=== PATIENT | female | born 1940 | race Hispanic/Latino ===

== ENCOUNTER 2016-11-29 13:19 | Emergency (ER) | payer MEDICARE ==
--- NOTE | 2016-11-29 13:58 | Emergency Department Report ---
Entered by TAWANA ZAVALA, acting as scribe for CONNOR BHARDWAJ NP. Chief Complaint: Syncope Stated Complaint: SYNCOPE EPISODES Time Seen by Provider: 11/29/16 13:43 - HPI History of Present Illness: 76 year old female is non-toxic, non ill appearing, in no acute distress with c/ o dizziness s/p near syncopal episode that occurred yesterday. Patient states that she felt like she was going to fall but caught herself. Pt denies head trauma or syncope. Patient reports abd pain from hernia but denies N/V/D, chest pain, SOB, fever, chills, numbness, tingling, LOC, chest pain, and blurry vision. Patient reports wearing oxygen for chronic COPD. - ROS Review of Systems: Reports abd pain from hernia site, dizziness, near syncope Denies N/V/D, chest pain, SOB, fever, chills, numbness, tingling, LOC, chest pain, and blurry vision. - Exam Vital Signs: Vital Signs 11/29/16 13:25 Temperature 97.9 F Pulse Rate 79 Respiratory 20 Rate Blood Pressure 139/71 O2 Sat by Pulse 99 Oximetry Physical Exam: Constitutional: Non toxic appearing, NAD. Cardiovascular: Normal rate and rhythm with normal S1/S2 sounds. Respiratory: No respiratory distress. Lung sounds clear to auscultation bilaterally. Abdomen: Soft, nontender, and nondistended. Positive bowel sounds. No hepatosplenomegaly was noted. No guarding or rebound tenderness, negative epigastric bruit. Negative psoas sign, negative davis sign, negative McBurneys sign NEUROLOGIC: Cranial nerves II through XII are grossly intact. Alert and oriented x 3. Normal gait. Symmetrical strength and sensation. Reflexes 2+ throughout. Cerebellar testing normal. GCS score of 15. MSE screening note: Focused history and physical exam performed. Due to findings the following was ordered: EKG, BMP, CARDIAC CK/CKMB, CBC, HEPATIC STAT, BNP, TROPONIN, CHEST X-RAY was ordered for patient. ED Disposition for MSE Condition: Stable This documentation as recorded by the scribe,TAWANA ZAVALA,accurately reflects the service I personally performed and the decisions made by ak,CONNOR BHARDWAJ, LEODAN.
[2016-11-29 14:28] LABS: Basophils % (Auto) 0.8 % (0.0-1.8); Eosinophils % (Auto) 0.6 % (0.0-4.3); Hematocrit 42.8 % (30.3-42.9); Mean Corpuscular HGB Conc 33 % (30-34); Mean Corpuscular Hemoglobin 31 pg (28-32); Mean Corpuscular Volume 94 fl (79-97); Platelet Count 314 K/mm3 (140-440); Red Blood Count 4.55 M/mm3 (3.65-5.03); Red Cell Distribution Width 13.8 % (13.2-15.2); White Blood Count 8.2 K/mm3 (4.5-11.0)
[2016-11-29 14:38] LABS: Creatine Kinase MB 2.4 ng/mL (0.0-4.0)
[2016-11-29 14:39] LABS: Alanine Aminotransferase 5 units/L (7-56); Albumin 4.7 g/dL (3.9-5); Albumin/Globulin Ratio 1.5 %; Alkaline Phosphatase 57 units/L (35-129); Anion Gap 20 mmol/L; BUN/Creatinine Ratio 31.42; Blood Urea Nitrogen 22 mg/dL (7-17); Calcium 10.1 mg/dL (8.4-10.2); Carbon Dioxide 26 mmol/L (22-30); Chloride 98.7 mmol/L (98-107); Creatine Kinase 60 units/L (30-135); Glucose 98 mg/dL (65-100); Potassium 4.6 mmol/L (3.6-5.0); Sodium 140 mmol/L (137-145); Total Protein 7.8 g/dL (6.3-8.2)
--- NOTE | 2016-11-29 14:40 | Emergency Department Report ---
ED Syncope HPI - General Chief Complaint: Syncope Stated Complaint: SYNCOPE EPISODES Time Seen by Provider: 11/29/16 14:39 - History of Present Illness Initial Comments: Pt is a 76 yr old female with a h/o HTN, asthma who presents with near syncopal episodes. Pt reports for the last two days she feels as if she is going to pass out. She reports if she lays down she feels "as if I'm going to go out" so she stands up which alleviates the feeling. Pt denies any true syncopal episodes. Otherwise no MULLIGAN, dizziness, vision changes, NVD, SOB, CP, abdominal pain, leg pain/swelling, travel, trauma, falls, or sick contacts. Pt lives alone and does her own grocery shopping and bills PMD: Dr Banks - Related Data Allergies/Adverse Reactions: Allergies Sulfa (Sulfonamide Antibiotics) Allergy (Verified 03/04/13 22:58) Unknown Home Medications: Ambulatory Orders Verapamil HCl [Calan Sr] 240 mg PO QDAY 05/30/13 Levothyroxine [Synthroid] 75 mcg PO DAILY 11/09/13 Rosuvastatin (Nf) [Crestor] 5 mg PO DAILY 11/09/13 ALBUTEROL Inhaler [ProAir HFA Inhaler] 2 puff IH QID PRN 30 Days 01/02/15 Aspirin [Aspirin BABY CHEW TAB] 81 mg PO DAILY tab.chew 01/02/15 Hydrochlorothiazide [HCTZ] 25 mg PO QDAY #30 tablet 01/02/15 hydrALAZINE [Apresoline TAB] 25 mg PO Q8HR #90 tablet 01/02/15 predniSONE [Deltasone] 10 mg PO BID #10 tablet 01/02/15 Clindamycin [Clindamycin CAP] 300 mg PO Q8H #30 cap 12/15/15 Naproxen Sodium [Aleve TAB] 220 mg PO Q8H PRN #20 tablet 12/15/15 Nitrofurantoin [place]/M-Cryst [Macrobid CAP] 100 mg PO ONCE #14 capsule 11/29/16 ED Review of Systems ROS: Stated complaint: SYNCOPE EPISODES Other details as noted in HPI Comment: All other systems reviewed and negative ED Past Medical Hx - Past Medical History Previous Medical History?: Yes Hx Hypertension: Yes Hx Heart Attack/AMI: Yes (> 30 yrs ago; CHF about 10 yrs ago per patient) Hx Congestive Heart Failure: Yes Hx Arthritis: Yes Hx Seizures: No Hx Asthma: Yes (> 5 yrs ago) Hx COPD: Yes Hx HIV: No Additional medical history: Abd hernia, hypothyroidism, Chronic Pain (go to pain clinic), [place] x2,vaginal cyst - Surgical History Past Surgical History?: Yes Hx Cholecystectomy: Yes Additional Surgical History: Hysterectomy - Social History Smoking Status: Never Smoker Substance Use Type: Prescribed - Medications Home Medications: Home Medications Medication Instructions Recorded Confirmed Last Taken Type Verapamil HCl [Calan Sr] 240 mg PO QDAY 05/30/13 06/07/15 12/31/14 History Levothyroxine [Synthroid] 75 mcg PO DAILY 11/09/13 06/07/15 12/31/14 History Rosuvastatin (Nf) [Crestor] 5 mg PO DAILY 11/09/13 06/07/15 12/31/14 History ALBUTEROL Inhaler [ProAir HFA 2 puff IH QID PRN 30 Days 01/02/15 06/07/15 Unknown Rx Inhaler] Aspirin [Aspirin BABY CHEW TAB] 81 mg PO DAILY tab.chew 01/02/15 06/07/15 Unknown Rx Hydrochlorothiazide [HCTZ] 25 mg PO QDAY #30 tablet 01/02/15 06/07/15 Unknown Rx hydrALAZINE [Apresoline TAB] 25 mg PO Q8HR #90 tablet 01/02/15 06/07/15 Unknown Rx predniSONE [Deltasone] 10 mg PO BID #10 tablet 01/02/15 06/07/15 Unknown Rx Clindamycin [Clindamycin CAP] 300 mg PO Q8H #30 cap 12/15/15 Unknown Rx Naproxen Sodium [Aleve TAB] 220 mg PO Q8H PRN #20 tablet 12/15/15 Unknown Rx Nitrofurantoin [place]/M-Cryst 100 mg PO ONCE #14 capsule 11/29/16 Unknown Rx [Macrobid CAP] ED Physical Exam - General Limitations: No Limitations General appearance: alert, in no apparent distress - Head Head exam: Present: atraumatic, normocephalic - Eye Eye exam: Present: normal appearance, PERRL, EOMI. Absent: scleral icterus, conjunctival injection, nystagmus Pupils: Present: normal accommodation. Absent: unequal - ENT ENT exam: Present: normal exam, mucous membranes moist - Neck Neck exam: Present: normal inspection. Absent: tenderness, meningismus - Respiratory Respiratory exam: Present: normal lung sounds bilaterally. Absent: respiratory distress, wheezes, rales, rhonchi, stridor - Cardiovascular Cardiovascular Exam: Present: regular rate, normal rhythm, normal heart sounds. Absent: irregular rhythm, systolic murmur, diastolic murmur, rubs, gallop - GI/Abdominal GI/Abdominal exam: Present: soft, normal bowel sounds, hernia (large ventral hernia). Absent: distended, tenderness, guarding, rebound, rigid - Rectal Rectal exam: Present: deferred - Extremities Exam Extremities exam: Present: normal inspection - Back Exam Back exam: Present: normal inspection - Neurological Exam Neurological exam: Present: alert, oriented X3 - Psychiatric Psychiatric exam: Present: normal affect, normal mood - Skin Skin exam: Present: warm, dry, intact, normal color. Absent: rash ED Course Vital Signs 11/29/16 11/29/16 11/29/16 13:25 14:21 14:39 Temperature 97.9 F Pulse Rate 79 Respiratory 20 12 Rate Blood Pressure 139/71 O2 Sat by Pulse 99 97 98 Oximetry ED Medical Decision Making - Lab Data Result diagrams: 11/29/16 14:00 11/29/16 14:00 - EKG Data -: EKG Interpreted by Me - EKG Data 11/29/16 14:39 EKG 1348 sinus rhythm with sinus arrhythmia, 72 bpm, QTC 400 ms, normal axis, no LVH, no ST changes, no STEMI - Medical Decision Making UA reviewed for UTI, ordered macrobid 100mg PO x 1 dose here in the ED Results discussed with patient Pt to follow up with PMD Critical care attestation.: If time is entered above; I have spent that time in minutes in the direct care of this critically ill patient, excluding procedure time. ED Disposition Clinical Impression: Near syncope, UTI (urinary tract infection) Disposition: TO HOME OR SELFCARE Is pt being admited?: No Condition: Stable Instructions: Urinary Tract Infection in Women (ED), Near Syncope (ED) Prescriptions: Nitrofurantoin [place]/M-Cryst [Macrobid CAP] 100 mg PO ONCE #14 capsule
[2016-11-29 14:48] LABS: Bilirubin,Direct < 0.2 mg/dL (0-0.2)
--- NOTE | 2016-11-29 15:28 | Cat Scan Report ---
Cranial CT without contrast. History: Syncope. Findings: There is no evidence of acute hemorrhage or infarct. The posterior fossa is unremarkable. The ventricles are normal in size and contour. Senescent changes are consistent with age. There are no masses or extra-axial collections. The calvarium is intact. Impression: No acute findings.
[2016-11-29 16:08] LABS: Bacteria,Urine 2+ /HPF (Negative); Bilirubin,Urine NEG (Negative); Blood,Urine SM (Negative); Ketones,Urine 20 mg/dL (Negative); Leukocyte Esterase,Urine LG (Negative); Mucus,Urine 1+ /HPF; Nitrite,Urine POS (Negative); Urobilinogen,Urine < 2.0 mg/dL (<2.0)
--- NOTE | 2016-11-29 16:10 | XRay Report ---
CHEST TWO VIEWS: 11/29/16 14:02 CLINICAL: Syncope. COMPARISON: 12/31/14 FINDINGS: Normal heart and pulmonary vasculature.Calcified hilar granulomata are unchanged compared to the prior exam. The lungs are normally expanded and clear.The bones and soft tissues are unremarkable. IMPRESSION: No acute cardiopulmonary process. Old granulomatous disease.
[2016-11-29] MEDS ORDERED: MACROBID PO ONE (16:17)
[2016-11-29] MEDS ORDERED: MACROBID ONE (16:36)
[2016-11-29 16:45] VITALS: BP 142/67
== END 2016-11-29 16:44 | disposition home or self-care (01) ==
LOC: ED 13:19
DX: N39.0 Urinary tract infection, site not specified (principal); R55 Syncope and collapse; I11.0 Hypertensive heart disease with heart failure; I50.9 Heart failure, unspecified; M19.90 Unspecified osteoarthritis, unspecified site; J45.909 Unspecified asthma, uncomplicated; J44.9 Chronic obstructive pulmonary disease, unspecified; I25.2 Old myocardial infarction; Z88.2 Allergy status to sulfonamides; Z79.82 Long term (current) use of aspirin; Z90.710 Acquired absence of both cervix and uterus
CPT/HCPCS: 36415; 70450; 71020; 80048; 80074; 81001; 82550; 82553; 83880; 84484; 85025; 85379; 93005; 93010; 99284

== ENCOUNTER 2018-02-25 10:07 | Inpatient (IN) | payer MEDICARE ==
--- NOTE | 2018-02-25 10:27 | Emergency Department Report ---
ED Dizziness HPI - General Chief Complaint: Dizziness Stated Complaint: ALMOST PASSED OUT Time Seen by Provider: 02/25/18 10:25 Source: patient, family, EMS Mode of arrival: Stretcher Limitations: No Limitations - History of Present Illness Initial Comments: Patient was brought to the emergency room by EMS for dizziness. Patient said she almost passed out. She has been feeling dizzy on and off for the past one year. I spoke with her daughter Ms. Dianna Mariano who lives in [place]. She said, that her mother has been having dizzy spells for a year. She also said the patient had a negative cardiac cath about 6-8 months ago at [facility]. She said the patient's lives alone. MD Complaint: dizziness, lightheadedness, near syncope -: year(s) (one) Timing: sudden onset, now resolved Description: lightheadedness, near-syncope, other (Sense of moving through a tunnel.) History of Same: Yes History of Trauma: No Severity: Unable to Determine Improves With: nothing Worsens With: nothing Associated Symptoms: loss of appetite - Related Data Home Medications Medication Instructions Recorded Confirmed Last Taken Verapamil HCl [Calan Sr] 240 mg PO QDAY 05/30/13 06/07/15 12/31/14 Levothyroxine [Synthroid] 75 mcg PO DAILY 11/09/13 06/07/15 12/31/14 Rosuvastatin (Nf) [Crestor] 5 mg PO DAILY 11/09/13 06/07/15 12/31/14 Previous Rx's Medication Instructions Recorded Last Taken Type ALBUTEROL Inhaler (OR & NICU) 2 puff IH QID PRN 30 Days 01/02/15 Unknown Rx [ProAir HFA Inhaler] inhalation Aspirin [Aspirin BABY CHEW TAB] 81 mg PO DAILY tab.chew 01/02/15 Unknown Rx hydrALAZINE [Apresoline TAB] 25 mg PO Q8HR #90 tablet 01/02/15 Unknown Rx hydroCHLOROthiazide [HCTZ] 25 mg PO QDAY #30 tablet 01/02/15 Unknown Rx predniSONE [Deltasone] 10 mg PO BID #10 tablet 01/02/15 Unknown Rx Clindamycin [Clindamycin CAP] 300 mg PO Q8H #30 cap 12/15/15 Unknown Rx Naproxen Sodium [Aleve TAB] 220 mg PO Q8H PRN #20 tablet 12/15/15 Unknown Rx Nitrofurantoin [place]/M-Cryst 100 mg PO ONCE #14 capsule 11/29/16 Unknown Rx [Macrobid CAP] Allergies Allergy/AdvReac Type Severity Reaction Status Date / Time Sulfa (Sulfonamide Allergy Unknown Verified 03/04/13 22:58 Antibiotics) ED Review of Systems ROS: Stated complaint: ALMOST PASSED OUT Other details as noted in HPI Comment: All other systems reviewed and negative Constitutional: denies: chills, fever Eyes: denies: eye pain ENT: denies: ear pain Respiratory: denies: cough, shortness of breath Cardiovascular: denies: chest pain, palpitations Endocrine: no symptoms reported Gastrointestinal: abdominal pain. denies: nausea, vomiting, diarrhea, constipation Genitourinary: denies: urgency, dysuria, frequency Musculoskeletal: denies: back pain Skin: denies: rash, lesions Neurological: denies: headache, weakness, numbness, paresthesias Psychiatric: denies: anxiety, depression Hematological/Lymphatic: denies: easy bleeding, easy bruising ED Past Medical Hx - Past Medical History Hx Hypertension: Yes Hx Heart Attack/AMI: Yes (> 30 yrs ago; CHF about 10 yrs ago per patient) Hx Congestive Heart Failure: Yes Hx Arthritis: Yes Hx Seizures: No Hx Asthma: Yes (> 5 yrs ago) Hx COPD: Yes Hx HIV: No Additional medical history: Abd hernia, hypothyroidism, Chronic Pain (go to pain clinic), [place] x2,vaginal cyst - Surgical History Hx Cholecystectomy: Yes Additional Surgical History: Hysterectomy - Social History Smoking Status: Never Smoker Substance Use Type: Prescribed - Medications Home Medications: Home Medications Medication Instructions Recorded Confirmed Last Taken Type Verapamil HCl [Calan Sr] 240 mg PO QDAY 05/30/13 06/07/15 12/31/14 History Levothyroxine [Synthroid] 75 mcg PO DAILY 11/09/13 06/07/15 12/31/14 History Rosuvastatin (Nf) [Crestor] 5 mg PO DAILY 11/09/13 06/07/15 12/31/14 History ALBUTEROL Inhaler (OR & NICU) 2 puff IH QID PRN 30 Days 01/02/15 06/07/15 Unknown Rx [ProAir HFA Inhaler] inhalation Aspirin [Aspirin BABY CHEW TAB] 81 mg PO DAILY tab.chew 01/02/15 06/07/15 Unknown Rx hydrALAZINE [Apresoline TAB] 25 mg PO Q8HR #90 tablet 01/02/15 06/07/15 Unknown Rx hydroCHLOROthiazide [HCTZ] 25 mg PO QDAY #30 tablet 01/02/15 06/07/15 Unknown Rx predniSONE [Deltasone] 10 mg PO BID #10 tablet 01/02/15 06/07/15 Unknown Rx Clindamycin [Clindamycin CAP] 300 mg PO Q8H #30 cap 12/15/15 Unknown Rx Naproxen Sodium [Aleve TAB] 220 mg PO Q8H PRN #20 tablet 12/15/15 Unknown Rx Nitrofurantoin [place]/M-Cryst 100 mg PO ONCE #14 capsule 11/29/16 Unknown Rx [Macrobid CAP] ED Physical Exam - General Limitations: No Limitations General appearance: alert, in no apparent distress - Head Head exam: Present: atraumatic, normocephalic, normal inspection - Eye Eye exam: Present: normal appearance, PERRL, EOMI Pupils: Present: normal accommodation - ENT ENT exam: Present: normal exam, normal orophraynx, mucous membranes moist - Neck Neck exam: Present: normal inspection, full ROM. Absent: tenderness - Respiratory Respiratory exam: Present: normal lung sounds bilaterally. Absent: respiratory distress, wheezes, rales, rhonchi, stridor - Cardiovascular Cardiovascular Exam: Present: regular rate, normal rhythm, normal heart sounds - GI/Abdominal GI/Abdominal exam: Present: soft, tenderness, normal bowel sounds. Absent: distended, guarding, rebound, rigid - Extremities Exam Extremities exam: Present: normal inspection, full ROM, normal capillary refill. Absent: tenderness - Back Exam Back exam: Present: normal inspection, full ROM. Absent: tenderness - Neurological Exam Neurological exam: Present: alert, oriented X3, CN II-XII intact - Psychiatric Psychiatric exam: Present: normal affect, normal mood - Skin Skin exam: Present: warm, dry, intact, normal color. Absent: rash ED Course Vital Signs 02/25/18 10:28 Temperature 98.1 F Pulse Rate 80 Blood Pressure 115/67 - Reevaluation(s) Reevaluation #1: 02/25/18 14:03 I discussed the patient care with the hospitalist dedicated regional driver Dr Guevara. He will admit patient for observation. ED Medical Decision Making - Lab Data Result diagrams: 02/25/18 12:24 02/25/18 12:24 - EKG Data -: EKG Interpreted by Me EKG shows normal: sinus rhythm Rate: normal (61) - EKG Data When compared to previous EKG there are: previous EKG unavailable Interpretation: nonspecific ST-T wave stephie 02/25/18 14:56 No STEMI. - Radiology Data Radiology results: report reviewed, image reviewed - Medical Decision Making Dizziness. Critical care attestation.: If time is entered above; I have spent that time in minutes in the direct care of this critically ill patient, excluding procedure time. ED Disposition Clinical Impression: Dizziness, Near syncope, Orthostatic dizziness, Dehydration Disposition: OP ADMIT IP TO THIS HOSP Is pt being admited?: Yes Does the pt Need Aspirin: No Condition: Stable Time of Disposition: 14:00
--- NOTE | 2018-02-25 11:24 | Cat Scan Report ---
FINAL REPORT EXAM: CT HEAD/BRAIN WO CON HISTORY: Lightheadedness/Dizziness TECHNIQUE: CT of the Head without IV contrast. PRIORS: None currently available. FINDINGS: Decreased attenuation regions in the periventricular and subcortical white matter are nonspecific and may represent small vessel ischemic disease, encephalopathy, edema, or a demyelinating process. Small vessel ischemic disease (leukoaroaiosis) favored. Vascular calcifications. There is no evidence for acute ischemia. There is no hemorrhage. There is no midline shift. There is no hydrocephalus. There is no mass. Age appropriate hart-white matter attenuation is noted. There is no calvarial fracture. The temporal bones demonstrate aerated mastoid air cells. The middle ears appear unremarkable. Paranasal sinuses are unremarkable. Globes are intact. IMPRESSION: No acute intracranial findings. Chronic ischemic disease.
[2018-02-25 12:44] LABS: Basophils % (Auto) 0.5 % (0.0-1.8); Eosinophils % (Auto) 0.3 % (0.0-4.3); Hematocrit 42.3 % (30.3-42.9); Hemoglobin 13.6 gm/dl (10.1-14.3); Lymphocytes # (Auto) 1.2 K/mm3 (1.2-5.4); Lymphocytes % (Auto) 12.5 % (13.4-35.0); Mean Corpuscular HGB Conc 32 % (30-34); Mean Corpuscular Hemoglobin 32 pg (28-32); Mean Corpuscular Volume 98 fl (79-97); Monocytes # (Auto) 0.5 K/mm3 (0.0-0.8); Monocytes % (Auto) 5.2 % (0.0-7.3); Red Blood Count 4.31 M/mm3 (3.65-5.03); Red Cell Distribution Width 14.4 % (13.2-15.2)
[2018-02-25 12:50] LABS: Bacteria,Urine 1+ /HPF (Negative); Bilirubin,Urine NEG (Negative); Blood,Urine SM (Negative); Color,Urine Yellow (Yellow); Mucus,Urine FEW /HPF; Urobilinogen,Urine < 2.0 mg/dL (<2.0)
[2018-02-25 12:51] LABS: Platelet Count 216 K/mm3 (140-440)
[2018-02-25 12:54] LABS: INR 0.88 (0.87-1.13)
[2018-02-25 13:04] LABS: Albumin 4.4 g/dL (3.9-5); BUN/Creatinine Ratio 30; Blood Urea Nitrogen 15 mg/dL (7-17); Calcium 9.8 mg/dL (8.4-10.2); Hemolysis Index 4
[2018-02-25 13:24] LABS: Alanine Aminotransferase < 5 units/L (7-56)
[2018-02-25] MEDS ORDERED: NACL 0.9% 1000 ML 1,000 ML IV ONE (13:39)
--- NOTE | 2018-02-25 13:58 | XRay Report ---
FINAL REPORT EXAM: XR CHEST 1V AP HISTORY: Lightheadedness/Dizziness TECHNIQUE: Frontal chest x-ray. PRIORS: None currently available. FINDINGS: Cardiac silhouette is within normal limits. Aortic calcifications. There is no effusion. There is no pneumothorax. There is no consolidation. There are no suspicious osseous lesions. Degenerative changes in the spine and shoulders. IMPRESSION: No acute cardiopulmonary findings.
--- NOTE | 2018-02-25 15:23 | History and Physical Report ---
History of Present Illness Date of examination: 02/25/18 Date of admission: 02/25/18 14:03 Medications and Allergies Allergies Allergy/AdvReac Type Severity Reaction Status Date / Time Sulfa (Sulfonamide Allergy Unknown Verified 03/04/13 22:58 Antibiotics) Home Medications Medication Instructions Recorded Confirmed Last Taken Type Verapamil HCl [Calan Sr] 240 mg PO QDAY 05/30/13 06/07/15 12/31/14 History Levothyroxine [Synthroid] 75 mcg PO DAILY 11/09/13 06/07/15 12/31/14 History Rosuvastatin (Nf) [Crestor] 5 mg PO DAILY 11/09/13 06/07/15 12/31/14 History ALBUTEROL Inhaler (OR & NICU) 2 puff IH QID PRN 30 Days 01/02/15 06/07/15 Unknown Rx [ProAir HFA Inhaler] inhalation Aspirin [Aspirin BABY CHEW TAB] 81 mg PO DAILY tab.chew 01/02/15 06/07/15 Unknown Rx hydrALAZINE [Apresoline TAB] 25 mg PO Q8HR #90 tablet 01/02/15 06/07/15 Unknown Rx hydroCHLOROthiazide [HCTZ] 25 mg PO QDAY #30 tablet 01/02/15 06/07/15 Unknown Rx predniSONE [Deltasone] 10 mg PO BID #10 tablet 01/02/15 06/07/15 Unknown Rx Clindamycin [Clindamycin CAP] 300 mg PO Q8H #30 cap 12/15/15 Unknown Rx Naproxen Sodium [Aleve TAB] 220 mg PO Q8H PRN #20 tablet 12/15/15 Unknown Rx Nitrofurantoin [place]/M-Cryst 100 mg PO ONCE #14 capsule 11/29/16 Unknown Rx [Macrobid CAP] Exam - Constitutional Vitals: Temp Pulse Resp BP Pulse Ox 98.1 F 80 115/67 02/25/18 10:28 02/25/18 10:28 02/25/18 10:28 Results - Labs CBC & Chem 7: 02/25/18 12:24 02/25/18 12:24 Labs: Laboratory Last Values WBC 9.3 K/mm3 (4.5-11.0) 02/25/18 12:24 RBC 4.31 M/mm3 (3.65-5.03) 02/25/18 12:24 Hgb 13.6 gm/dl (10.1-14.3) 02/25/18 12:24 Hct 42.3 % (30.3-42.9) 02/25/18 12:24 MCV 98 fl (79-97) H 02/25/18 12:24 MCH 32 pg (28-32) 02/25/18 12:24 MCHC 32 % (30-34) 02/25/18 12:24 RDW 14.4 % (13.2-15.2) 02/25/18 12:24 Plt Count 216 K/mm3 (140-440) 02/25/18 12:24 Lymph % (Auto) 12.5 % (13.4-35.0) L 02/25/18 12: [place] % (Auto) 5.2 % (0.0-7.3) 02/25/18 12:24 Eos % (Auto) 0.3 % (0.0-4.3) 02/25/18 12:24 Baso % (Auto) 0.5 % (0.0-1.8) 02/25/18 12:24 Lymph # 1.2 K/mm3 (1.2-5.4) 02/25/18 12:24 [place] # 0.5 K/mm3 (0.0-0.8) 02/25/18 12: Eos # 0.0 K/mm3 (0.0-0.4) 02/25/18 12:24 Baso # 0.0 K/mm3 (0.0-0.1) 02/25/18 12:24 Seg Neutrophils % 81.5 % (40.0-70.0) H 02/25/18 12:24 Seg Neutrophils # 7.6 K/mm3 (1.8-7.7) 02/25/18 12:24 PT 12.4 Sec. (12.2-14.9) 02/25/18 12:24 INR 0.88 (0.87-1.13) 02/25/18 12:24 Sodium 137 mmol/L (137-145) 02/25/18 12:24 Potassium 4.7 mmol/L (3.6-5.0) 02/25/18 12:24 Chloride 101.0 mmol/L (98-107) 02/25/18 12:24 Carbon Dioxide 27 mmol/L (22-30) 02/25/18 12:24 Anion Gap 14 mmol/L 02/25/18 12:24 BUN 15 mg/dL (7-17) 02/25/18 12:24 Creatinine 0.5 mg/dL (0.7-1.2) L 02/25/18 12:24 Estimated GFR > 60 ml/min 02/25/18 12:24 BUN/Creatinine Ratio 30 % 02/25/18 12:24 Glucose 96 mg/dL (65-100) 02/25/18 12:24 Lactic Acid 0.70 mmol/L (0.7-2.0) 02/25/18 12:24 Calcium 9.8 mg/dL (8.4-10.2) 02/25/18 12:24 Total Bilirubin 0.50 mg/dL (0.1-1.2) 02/25/18 12:24 AST 17 units/L (5-40) 02/25/18 12:24 ALT < 5 units/L (7-56) L 02/25/18 12:24 Alkaline Phosphatase 43 units/L (35-129) 02/25/18 12:24 Total Creatine Kinase 33 units/L (30-135) 02/25/18 12:24 CK-MB (CK-2) 1.0 ng/mL (0.0-4.0) 02/25/18 12:24 CK-MB (CK-2) Rel Index 3.0 (0-4) 02/25/18 12:24 Troponin T < 0.010 ng/mL (0.00-0.029) 02/25/18 12:24 NT-Pro-B Natriuret Pep 236.6 pg/mL (0-900) 02/25/18 12:24 Total Protein 7.1 g/dL (6.3-8.2) 02/25/18 12:24 Albumin 4.4 g/dL (3.9-5) 02/25/18 12:24 Albumin/Globulin Ratio 1.6 % 02/25/18 12:24 Lipase 41 units/L (13-60) 02/25/18 12:24 Urine Color Yellow (Yellow) 02/25/18 12:13 Urine Turbidity Cloudy (Clear) 02/25/18 12:13 Urine pH 7.0 (5.0-7.0) 02/25/18 12:13 Ur Specific Leupp 1.017 (1.003-1.030) 02/25/18 12:13 Urine Protein 30 mg/dl mg/dL (Negative) 02/25/18 12:13 Urine Glucose (UA) Neg mg/dL (Negative) 02/25/18 12:13 Urine Ketones Neg mg/dL (Negative) 02/25/18 12:13 Urine Blood Sm (Negative) 02/25/18 12:13 Urine Nitrite Neg (Negative) 02/25/18 12:13 Urine Bilirubin Neg (Negative) 02/25/18 12:13 Urine Urobilinogen < 2.0 mg/dL (<2.0) 02/25/18 12:13 Ur Leukocyte Esterase Neg (Negative) 02/25/18 12:13 Urine WBC (Auto) 5.0 /HPF (0.0-6.0) 02/25/18 12:13 Urine RBC (Auto) 7.0 /HPF (0.0-6.0) 02/25/18 12:13 U Epithel Cells (Auto) 13.0 /HPF (0-13.0) 02/25/18 12:13 Urine Bacteria (Auto) 1+ /HPF (Negative) 02/25/18 12:13 Urine Mucus Few /HPF 02/25/18 12:13 Urine Yeast (Budding) 3+ /HPF 02/25/18 12:13
[2018-02-26] MEDS ORDERED: SODIUM CHLORIDE FLUSH SYRINGE 10 ML IV PRN (01:59)
[2018-02-26] MEDS ORDERED: MORPHINE IV PRN (01:59)
[2018-02-26] MEDS ORDERED: ZOFRAN IV PRN (01:59)
[2018-02-26] MEDS ORDERED: TYLENOL PO PRN (01:59)
[2018-02-26] MEDS ORDERED: REGLAN IV PRN (01:59)
[2018-02-26] MEDS ORDERED: PROAIR IH PRN (02:02)
[2018-02-26] MEDS ORDERED: PROVENTIL IH PRN (02:20)
[2018-02-26] MEDS: SYNTHROID PO SCH (05:47)
[2018-02-26] MEDS: PERCOCET 5/325 PO PRN ×2 (05:51→20:27)
--- NOTE | 2018-02-26 07:06 | Event Note ---
Date: 02/25/18 See dictated H/p in reports Near syncope Orthostatic Hypotension
--- NOTE | 2018-02-26 08:07 | History and Physical Report ---
CHIEF COMPLAINT: 1. Near-passing out spells for the last 1 week. 2. Dizziness for 1 year. HISTORY OF PRESENT ILLNESS: The patient is an 78-year-old female who is brought in for dizziness off and on for the last 1 year and near-passing out spells for the last one week. The patient had a negative cardiac catheterization 6-8 months ago at [facility]. The patient is on multiple antihypertensives. No precipitating factors. Antihypertensives may be precipitating. No shortness of breath. PAST MEDICAL HISTORY: Significant for hypertension, asthma, and osteoarthritis. PAST SURGICAL HISTORY: Hysterectomy and cholecystectomy. SOCIAL HISTORY: Does not smoke. Lives with . FAMILY HISTORY: Significant for hypertension. CURRENT MEDICATIONS: On the chart. REVIEW OF SYSTEMS: Significant for near-syncopal episodes for the past one week, but did not syncopize. Feels very dizzy, especially on standing. PHYSICAL EXAMINATION: GENERAL: Elderly female, cooperative during examination. VITAL SIGNS: Blood pressure supine was 126/66, sitting was 118/68, standing was 134/76, heart rate was 102, temperature 97, pulse is 70, respirations are 18. HEENT: Unremarkable. Pupils equal and reactive. NECK: Supple, no lymphadenopathy, no thyromegaly. LUNGS: Clear to auscultation and percussion. Good air entry. CARDIOVASCULAR: S1, S2 heard. No gallop, no murmur, no rub. Apical impulse in the left fifth intercostal space and midclavicular line. ABDOMEN: Soft and benign. No hepatosplenomegaly, no guarding, no rigidity. Hernial orifices are normal. EXTREMITIES: Good pedal pulses. No pedal edema. CENTRAL NERVOUS SYSTEM: Alert and oriented x 4, nonfocal exam. SKIN: Normal. DIAGNOSTIC DATA: EKG shows normal sinus rhythm, heart rate of 61 per minute, no acute ST-T wave changes. IMAGING STUDIES: Head CT shows no acute intracranial findings. Chronic ischemic disease. Chest x-ray: No acute cardiopulmonary findings. LABORATORY DATA: Labs are significant for white count of 9300, hemoglobin of 13.6 and 42.3, platelet count was 216,000. Electrolytes are normal. BUN and creatinine is 15 and 0.5. LFTs are normal. Urine was normal. ASSESSMENT AND PLAN: 1. Near syncope. The patient has orthostatic hypotension. I will stop some of the blood pressure medications. I will hold hydralazine and hydrochlorothiazide for the time being. The patient to continue on verapamil and reassess. 2. Hypothyroidism. Continue levothyroxine. 3. Hyperlipidemia. Continue rosuvastatin. 4. Osteoarthritis, naproxen on hold. We will add if necessary. 5. Asthma. Continue albuterol inhalers on a p.r.n. basis. 6. Deep venous thrombosis prophylaxis, Lovenox 40 mg subcutaneous daily. ADDENDUM: The patient to get echocardiogram, and carotid duplex scan. Lexiscan not ordered because Cardiology consult requested. JOB# [id number] PJ/JASON
--- NOTE | 2018-02-26 08:30 | Progress Note ---
Assessment and Plan Assessment and plan: Presyncope. Follow-up carotid ultrasound. We will order echocardiogram today. Hypertension. Resume antihypertensive medications. COPD. Compensated. Continue home medications. Hypothyroidism. Continue Synthroid. Hyperlipidemia. Continue Lipitor DVT prophylaxis. Lovenox daily. History Interval history: No new episodes overnight Hospitalist Physical - Constitutional Vitals: Temp Pulse Resp BP Pulse Ox 98.2 F 65 18 133/68 95 02/26/18 02:37 02/26/18 02:37 02/26/18 02:37 02/26/18 02:37 02/26/18 02:37 General appearance: Present: no acute distress, well-nourished - EENT Eyes: Present: PERRL, EOM intact ENT: hearing intact, clear oral mucosa, dentition normal - Neck Neck: Present: supple, normal ROM - Respiratory Respiratory effort: normal Respiratory: bilateral: CTA - Cardiovascular Rhythm: regular Heart Sounds: Present: S1 & S2. Absent: gallop, rub - Extremities Extremities: no ischemia, No edema, Full ROM - Abdominal General gastrointestinal: soft, non-tender, non-distended, normal bowel sounds - Integumentary Integumentary: Present: clear, warm, dry - Neurologic Neurologic: CNII-XII intact, moves all extremities Results - Labs CBC & Chem 7: 02/25/18 12:24 02/25/18 12:24 Labs: Laboratory Last Values WBC 9.3 K/mm3 (4.5-11.0) 02/25/18 12:24 RBC 4.31 M/mm3 (3.65-5.03) 02/25/18 12:24 Hgb 13.6 gm/dl (10.1-14.3) 02/25/18 12:24 Hct 42.3 % (30.3-42.9) 02/25/18 12:24 MCV 98 fl (79-97) H 02/25/18 12:24 MCH 32 pg (28-32) 02/25/18 12:24 MCHC 32 % (30-34) 02/25/18 12:24 RDW 14.4 % (13.2-15.2) 02/25/18 12:24 Plt Count 216 K/mm3 (140-440) 02/25/18 12:24 Lymph % (Auto) 12.5 % (13.4-35.0) L 02/25/18 12:24 [place] % (Auto) 5.2 % (0.0-7.3) 02/25/18 12:24 Eos % (Auto) 0.3 % (0.0-4.3) 02/25/18 12:24 Baso % (Auto) 0.5 % (0.0-1.8) 02/25/18 12:24 Lymph # 1.2 K/mm3 (1.2-5.4) 02/25/18 12:24 [place] # 0.5 K/mm3 (0.0-0.8) 02/25/18 12:24 Eos # 0.0 K/mm3 (0.0-0.4) 02/25/18 12: Baso # 0.0 K/mm3 (0.0-0.1) 02/25/18 12:24 Seg Neutrophils % 81.5 % (40.0-70.0) H 02/25/18 12:24 Seg Neutrophils # 7.6 K/mm3 (1.8-7.7) 02/25/18 12:24 PT 12.4 Sec. (12.2-14.9) 02/25/18 12:24 INR 0.88 (0.87-1.13) 02/25/18 12:24 Sodium 137 mmol/L (137-145) 02/25/18 12:24 Potassium 4.7 mmol/L (3.6-5.0) 02/25/18 12:24 Chloride 101.0 mmol/L (98-107) 02/25/18 12:24 Carbon Dioxide 27 mmol/L (22-30) 02/25/18 12:24 Anion Gap 14 mmol/L 02/25/18 12:24 BUN 15 mg/dL (7-17) 02/25/18 12:24 Creatinine 0.5 mg/dL (0.7-1.2) L 02/25/18 12:24 Estimated GFR > 60 ml/min 02/25/18 12:24 BUN/Creatinine Ratio 30 % 02/25/18 12:24 Glucose 96 mg/dL (65-100) 02/25/18 12:24 POC Glucose 95 (70-105) 02/25/18 21:45 Hemoglobin A1c 5.5 % (4-6) 02/26/18 02:48 Lactic Acid 0.70 mmol/L (0.7-2.0) 02/25/18 12:24 Calcium 9.8 mg/dL (8.4-10.2) 02/25/18 12:24 Total Bilirubin 0.50 mg/dL (0.1-1.2) 02/25/18 12:24 AST 17 units/L (5-40) 02/25/18 12:24 ALT < 5 units/L (7-56) L 02/25/18 12:24 Alkaline Phosphatase 43 units/L (35-129) 02/25/18 12:24 Total Creatine Kinase 33 units/L (30-135) 02/25/18 12:24 CK-MB (CK-2) 1.0 ng/mL (0.0-4.0) 02/25/18 12:24 CK-MB (CK-2) Rel Index 3.0 (0-4) 02/25/18 12:24 Troponin T < 0.010 ng/mL (0.00-0.029) 02/25/18 12:24 NT-Pro-B Natriuret Pep 236.6 pg/mL (0-900) 02/25/18 12:24 Total Protein 7.1 g/dL (6.3-8.2) 02/25/18 12:24 Albumin 4.4 g/dL (3.9-5) 02/25/18 12:24 Albumin/Globulin Ratio 1.6 % 02/25/18 12:24 Lipase 41 units/L (13-60) 02/25/18 12:24 Urine Color Yellow (Yellow) 02/25/18 12:13 Urine Turbidity Cloudy (Clear) 02/25/18 12:13 Urine pH 7.0 (5.0-7.0) 02/25/18 12:13 Ur Specific [place] 1.017 (1.003-1.030) 02/25/18 12:13 Urine Protein 30 mg/dl mg/dL (Negative) 02/25/18 12:13 Urine Glucose (UA) Neg mg/dL (Negative) 02/25/18 12:13 Urine Ketones Neg mg/dL (Negative) 02/25/18 12:13 Urine Blood Sm (Negative) 02/25/18 12:13 Urine Nitrite Neg (Negative) 02/25/18 12:13 Urine Bilirubin Neg (Negative) 02/25/18 12:13 Urine Urobilinogen < 2.0 mg/dL (<2.0) 02/25/18 12:13 Ur Leukocyte Esterase Neg (Negative) 02/25/18 12:13 Urine WBC (Auto) 5.0 /HPF (0.0-6.0) 02/25/18 12:13 Urine RBC (Auto) 7.0 /HPF (0.0-6.0) 02/25/18 12:13 U Epithel Cells (Auto) 13.0 /HPF (0-13.0) 02/25/18 12:13 Urine Bacteria (Auto) 1+ /HPF (Negative) 02/25/18 12:13 Urine Mucus Few /HPF 02/25/18 12:13 Urine Yeast (Budding) 3+ /HPF 02/25/18 12:13
[2018-02-26] MEDS: PEPCID PO SCH ×3 (09:39→22:25)
[2018-02-26] MEDS: BABY ASPIRIN PO SCH (09:39)
[2018-02-26] MEDS: DELTASONE PO SCH ×3 (09:39→22:23)
[2018-02-26] MEDS: CALAN SR PO SCH (09:40)
[2018-02-26] MEDS: SODIUM CHLORIDE FLUSH SYRINGE 10 ML IV SCH ×2 (09:44→22:29)
--- NOTE | 2018-02-26 10:43 | Consultation ---
History of Present Illness Consult date: 02/26/18 Consult reason: other (Near syncope) History of present illness: This is an 78 year old woman with a history of hypertension. There is no history of coronary artery disease. An echocardiogram in 2014 documents a normal left ventricular systolic function with a normal ejection fraction. Patient presented to this hospital with near syncope. Cardiac consultation was requested. Patient reports feeling dizzy on yesterday. There were no reports of chest pain, shortness of breath or palpitations. There was no loss of consciousness. She had a blood pressure of 115/[address] scan reports no intracranial abnormalities. Her ECG shows a normal sinus rhythm. Medications and Allergies Allergies Allergy/AdvReac Type Severity Reaction Status Date / Time Sulfa (Sulfonamide Allergy Unknown Verified 03/04/13 22:58 Antibiotics) Home Medications Medication Instructions Recorded Confirmed Last Taken Type Verapamil HCl [Calan Sr] 240 mg PO QDAY 05/30/13 02/25/18 12/31/14 History Levothyroxine [Synthroid] 75 mcg PO DAILY 11/09/13 02/25/18 12/31/14 History Rosuvastatin (Nf) [Crestor] 5 mg PO DAILY 11/09/13 02/25/18 12/31/14 History ALBUTEROL Inhaler (OR & NICU) 2 puff IH QID PRN 30 Days 01/02/15 02/25/18 Unknown Rx [ProAir HFA Inhaler] inhalation Aspirin [Aspirin BABY CHEW TAB] 81 mg PO DAILY tab.chew 01/02/15 02/25/18 Unknown Rx hydrALAZINE [Apresoline TAB] 25 mg PO Q8HR #90 tablet 01/02/15 02/25/18 Unknown Rx hydroCHLOROthiazide [HCTZ] 25 mg PO QDAY #30 tablet 01/02/15 02/25/18 Unknown Rx predniSONE [Deltasone] 10 mg PO BID #10 tablet 01/02/15 02/25/18 Unknown Rx Clindamycin [Clindamycin CAP] 300 mg PO Q8H #30 cap 12/15/15 02/25/18 Unknown Rx Naproxen Sodium [Aleve TAB] 220 mg PO Q8H PRN #20 tablet 12/15/15 02/25/18 Unknown Rx Nitrofurantoin [place]/M-Cryst 100 mg PO ONCE #14 capsule 11/29/16 02/25/18 Unknown Rx [Macrobid CAP] Active Meds: Active Medications Acetaminophen (Tylenol) 650 mg PO Q4H PRN PRN Reason: Pain MILD(1-3)/Fever >100.5/MULLIGAN Albuterol (Proventil) 2.5 mg IH QIDRT PRN PRN Reason: Shortness Of Breath Aspirin (Baby Aspirin) 81 mg PO DAILY [facility] Last Admin: 02/26/18 09:39 Dose: 81 mg Atorvastatin Calcium (Lipitor) 10 mg PO QHS [facility] Famotidine (Pepcid) 20 mg PO BID [facility] Last Admin: 02/26/18 09:39 Dose: 20 mg Levothyroxine Sodium (Synthroid) 75 mcg PO DAILY@0600 [facility] Last Admin: 02/26/18 05:47 Dose: 75 mcg Metoclopramide HCl (Reglan) 10 mg IV Q6H PRN PRN Reason: Nausea And Vomiting Morphine Sulfate (Morphine) 2 mg IV Q4H PRN PRN Reason: Pain, Moderate (4-6) Ondansetron HCl (Zofran) 4 mg IV Q8H PRN PRN Reason: Nausea And Vomiting Oxycodone/Acetaminophen (Percocet 5/325) 1 tab PO Q6H PRN PRN Reason: Pain, Moderate (4-6) Last Admin: 02/26/18 05:51 Dose: 1 tab Prednisone (Deltasone) 10 mg PO BID [facility] Last Admin: 02/26/18 09:39 Dose: 10 mg Sodium Chloride (Sodium Chloride Flush Syringe 10 Ml) 10 ml IV BID [facility] Last Admin: 02/26/18 09:44 Dose: 10 ml Sodium Chloride (Sodium Chloride Flush Syringe 10 Ml) 10 ml IV PRN PRN PRN Reason: LINE FLUSH Verapamil HCl (Calan Sr) 240 mg PO QDAY [facility] Last Admin: 02/26/18 09:40 Dose: 240 mg Physical Examination Vital Signs Temp Pulse BP 98.1 F 80 115/67 02/25/18 10:28 02/25/18 10:28 02/25/18 10:28 General appearance: no acute distress HEENT: Positive: PERRL Cardiac: Positive: Reg Rate and Rhythm Lungs: Positive: Decreased Breath Sounds Neuro: Positive: Grossly Intact Extremities: Absent: edema Results 02/25/18 12:24 09/23/18 12:24 Cardiac Enzymes 02/25/18 02/25/18 Range/Units 12:24 12:24 AST 17 (5-40) units/L CK-MB (CK-2) 1.0 (0.0-4.0) ng/mL Coagulation 02/25/18 Range/Units 12:24 PT 12.4 (12.2-14.9) Sec. INR 0.88 (0.87-1.13) CBC 02/25/18 Range/Units 12:24 WBC 9.3 (4.5-11.0) K/mm3 RBC 4.31 (3.65-5.03) M/mm3 Hgb 13.6 (10.1-14.3) gm/dl Hct 42.3 (30.3-42.9) % Plt Count 216 (140-440) K/mm3 Lymph # 1.2 (1.2-5.4) K/mm3 [place] # 0.5 (0.0-0.8) K/mm3 Eos # 0.0 (0.0-0.4) K/mm3 Baso # 0.0 (0.0-0.1) K/mm3 Comprehensive Metabolic Panel 02/25/18 Range/Units 12:24 Sodium 137 (137-145) mmol/L Potassium 4.7 (3.6-5.0) mmol/L Chloride 101.0 (98-107) mmol/L Carbon Dioxide 27 (22-30) mmol/L BUN 15 (7-17) mg/dL Creatinine 0.5 L (0.7-1.2) mg/dL Glucose 96 (65-100) mg/dL Calcium 9.8 (8.4-10.2) mg/dL AST 17 (5-40) units/L ALT < 5 L (7-56) units/L Alkaline Phosphatase 43 (35-129) units/L Total Protein 7.1 (6.3-8.2) g/dL Albumin 4.4 (3.9-5) g/dL Assessment and Plan - Patient Problems (1) Near syncope Current Visit: Yes Status: Acute Plan to address problem: Echocardiogram for LVEF assessment. Pre-discharge persantine thallium stress test. On discharge, patient will be recommended for an outpatient event monitor.
[2018-02-27] MEDS: SYNTHROID PO SCH (05:06)
[2018-02-27 07:06] LABS: Basophils # (Auto) 0.1 K/mm3 (0.0-0.1); Basophils % (Auto) 0.7 % (0.0-1.8); Hematocrit 41.5 % (30.3-42.9); Hemoglobin 13.8 gm/dl (10.1-14.3); Lymphocytes # (Auto) 1.2 K/mm3 (1.2-5.4); Lymphocytes % (Auto) 13.5 % (13.4-35.0); Mean Corpuscular HGB Conc 33 % (30-34); Mean Corpuscular Hemoglobin 33 pg (28-32); Mean Corpuscular Volume 97 fl (79-97); Monocytes # (Auto) 0.5 K/mm3 (0.0-0.8); Monocytes % (Auto) 5.7 % (0.0-7.3); Platelet Count 226 K/mm3 (140-440); Red Blood Count 4.26 M/mm3 (3.65-5.03); Red Cell Distribution Width 13.8 % (13.2-15.2)
[2018-02-27 07:29] LABS: Albumin 4.2 g/dL (3.9-5); BUN/Creatinine Ratio 32; Blood Urea Nitrogen 16 mg/dL (7-17); Calcium 9.4 mg/dL (8.4-10.2); Hemolysis Index 13
[2018-02-27 07:30] LABS: Alanine Aminotransferase < 5 units/L (7-56)
--- NOTE | 2018-02-27 09:23 | Progress Note ---
Assessment and Plan Assessment and plan: --Presyncope : Carotid Doppler less than 50% stenosis Echo normal ejection fraction, cardiology following, stress test today --Hypertension : Well controlled continue antihypertensive medications. Check orthostatics --COPD : well Compensated. Continue home medications. --Hypothyroidism : Continue Synthroid. --Hyperlipidemia : Stable on Lipitor --DVT prophylaxis. Lovenox daily. Precautions, ambulate as tolerated Physical therapy if needed Possible discharge in 1-2 days if stable History Interval history: Patient Seen and examined, medical records reviewed No new episodes of syncope or near syncope Syncope workup in progress Schedule for stress test today patient is alert awake responding appropriately Vital signs stable Hospitalist Physical - Constitutional Vitals: Temp Pulse Resp BP Pulse Ox 98.3 F 66 20 145/72 97 02/27/18 07:41 02/27/18 07:41 02/27/18 07:41 02/27/18 07:41 02/27/18 07:41 General appearance: Present: no acute distress, well-nourished - EENT Eyes: Present: PERRL, EOM intact - Neck Neck: Present: supple, normal ROM - Respiratory Respiratory effort: normal Respiratory: negative: rales, rhonchi, wheezing - Cardiovascular Rhythm: regular Heart Sounds: Present: S1 & S2 - Extremities Extremities: no ischemia, No edema - Abdominal General gastrointestinal: soft, non-tender, non-distended, normal bowel sounds - Integumentary Integumentary: Present: clear, warm - Psychiatric Psychiatric: appropriate mood/affect, cooperative - Neurologic Neurologic: CNII-XII intact, moves all extremities Results - Labs CBC & Chem 7: 02/27/18 06:57 02/27/18 06:52 Labs: Laboratory Last Values WBC 8.6 K/mm3 (4.5-11.0) 02/27/18 06:57 RBC 4.26 M/mm3 (3.65-5.03) 02/27/18 06:57 Hgb 13.8 gm/dl (10.1-14.3) 02/27/18 06:57 Hct 41.5 % (30.3-42.9) 02/27/18 06:57 MCV 97 fl (79-97) 02/27/18 06:57 MCH 33 pg (28-32) H 02/27/18 06:57 MCHC 33 % (30-34) 02/27/18 06:57 RDW 13.8 % (13.2-15.2) 02/27/18 06:57 Plt Count 226 K/mm3 (140-440) 02/27/18 06:57 Lymph % (Auto) 13.5 % (13.4-35.0) 02/27/18 06:57 [place] % (Auto) 5.7 % (0.0-7.3) 02/27/18 06:57 Eos % (Auto) 0.0 % (0.0-4.3) 02/27/18 06:57 Baso % (Auto) 0.7 % (0.0-1.8) 02/27/18 06:57 Lymph # 1.2 K/mm3 (1.2-5.4) 02/27/18 06:57 [place] # 0.5 K/mm3 (0.0-0.8) 02/27/18 06:57 Eos # 0.0 K/mm3 (0.0-0.4) 02/27/18 06:57 Baso # 0.1 K/mm3 (0.0-0.1) 02/27/18 06:57 Seg Neutrophils % 80.1 % (40.0-70.0) H 02/27/18 06:57 Seg Neutrophils # 6.8 K/mm3 (1.8-7.7) 02/27/18 06:57 PT 12.4 Sec. (12.2-14.9) 02/25/18 12:24 INR 0.88 (0.87-1.13) 02/25/18 12:24 Sodium 137 mmol/L (137-145) 02/27/18 06:52 Potassium 4.5 mmol/L (3.6-5.0) 02/27/18 06:52 Chloride 103.2 mmol/L (98-107) 02/27/18 06:52 Carbon Dioxide 23 mmol/L (22-30) 02/27/18 06:52 Anion Gap 15 mmol/L 02/27/18 06:52 BUN 16 mg/dL (7-17) 02/27/18 06:52 Creatinine 0.5 mg/dL (0.7-1.2) L 02/27/18 06:52 Estimated GFR > 60 ml/min 02/27/18 06:52 BUN/Creatinine Ratio 32 % 02/27/18 06:52 Glucose 105 mg/dL (65-100) H 02/27/18 06:52 POC Glucose 95 (70-105) 02/25/18 21:45 Hemoglobin A1c 5.5 % (4-6) 02/26/18 02:48 Lactic Acid 0.70 mmol/L (0.7-2.0) 02/25/18 12:24 Calcium 9.4 mg/dL (8.4-10.2) 02/27/18 06:52 Total Bilirubin 0.50 mg/dL (0.1-1.2) 02/27/18 06:52 AST 15 units/L (5-40) 02/27/18 06:52 ALT < 5 units/L (7-56) L 02/27/18 06:52 Alkaline Phosphatase 41 units/L (35-129) 02/27/18 06:52 Total Creatine Kinase 33 units/L (30-135) 02/25/18 12:24 CK-MB (CK-2) 1.0 ng/mL (0.0-4.0) 02/25/18 12:24 CK-MB (CK-2) Rel Index 3.0 (0-4) 02/25/18 12:24 Troponin T < 0.010 ng/mL (0.00-0.029) 02/25/18 12:24 NT-Pro-B Natriuret Pep 236.6 pg/mL (0-900) 02/25/18 12:24 Total Protein 7.0 g/dL (6.3-8.2) 02/27/18 06:52 Albumin 4.2 g/dL (3.9-5) 02/27/18 06:52 Albumin/Globulin Ratio 1.5 % 02/27/18 06:52 Lipase 41 units/L (13-60) 02/25/18 12:24 Urine Color Yellow (Yellow) 02/25/18 12:13 Urine Turbidity Cloudy (Clear) 02/25/18 12:13 Urine pH 7.0 (5.0-7.0) 02/25/18 12:13 Ur Specific [place] 1.017 (1.003-1.030) 02/25/18 12:13 Urine Protein 30 mg/dl mg/dL (Negative) 02/25/18 12:13 Urine Glucose (UA) Neg mg/dL (Negative) 02/25/18 12:13 Urine Ketones Neg mg/dL (Negative) 02/25/18 12:13 Urine Blood Sm (Negative) 02/25/18 12:13 Urine Nitrite Neg (Negative) 02/25/18 12:13 Urine Bilirubin Neg (Negative) 02/25/18 12:13 Urine Urobilinogen < 2.0 mg/dL (<2.0) 02/25/18 12:13 Ur Leukocyte Esterase Neg (Negative) 02/25/18 12:13 Urine WBC (Auto) 5.0 /HPF (0.0-6.0) 02/25/18 12:13 Urine RBC (Auto) 7.0 /HPF (0.0-6.0) 02/25/18 12:13 U Epithel Cells (Auto) 13.0 /HPF (0-13.0) 02/25/18 12:13 Urine Bacteria (Auto) 1+ /HPF (Negative) 02/25/18 12:13 Urine Mucus Few /HPF 02/25/18 12:13 Urine Yeast (Budding) 3+ /HPF 02/25/18 12:13
--- NOTE | 2018-02-27 10:33 | Progress Note ---
Assessment and Plan - Patient Problems (1) Near syncope Current Visit: Yes Status: Acute Plan to address problem: 78-year-old woman who is a very poor historian, admitted with complaints of single episode of near syncope. She reports a sudden episode of headedness and weakness, unprovoked by taking any of her medications, not related to exertion, no shortness of breath, no palpitations and no chest pain. ECG in the hospital was a normal sinus rhythm, with a very brief sinus pause on the 10 second ECG tracing. On telemetry there has been no significant bradycardia or tachyarrhythmia. Past history of hypertension, patient is on verapamil 240 mg. History of thyroid disease, on levothyroxine, thyroid studies have not been rechecked. Echocardiogram shows left ventricular systolic function of the lower limits of normal ejection fraction 50-55%. Recommendations: Monitor telemetry. Check thyroid profile. Persantine thallium stress test. Consider neurological causes of syncope. Outpatient event monitor. Subjective Date of service: 02/27/18 Interval history: Patient is comfortable, no new complaints, awaiting thallium stress test scheduled for today. Objective Vital Signs Temp Pulse Pulse Resp BP Pulse Ox 02/27/18 07:41 98.3 F 66 20 145/72 97 02/27/18 07:35 95 02/27/18 02:17 97.6 F 69 16 131/64 96 02/26/18 22:00 71 18 02/26/18 21:13 71 02/26/18 19:18 99.0 F 71 16 140/71 98 02/26/18 13:14 98.0 F 88 18 134/75 93 - Physical Examination General: No Apparent Distress HEENT: Positive: PERRL Neck: Positive: neck supple Cardiac: Positive: Reg Rate and Rhythm Lungs: Positive: clear to auscultation Neuro: Positive: Grossly Intact Abdomen: Positive: Soft Skin: Positive: Clear Extremities: Absent: edema - Labs and Meds Cardiac Enzymes 02/27/18 Range/Units 06:52 AST 15 (5-40) units/L CBC 02/27/18 Range/Units 06:57 WBC 8.6 (4.5-11.0) K/mm3 RBC 4.26 (3.65-5.03) M/mm3 Hgb 13.8 (10.1-14.3) gm/dl Hct 41.5 (30.3-42.9) % Plt Count 226 (140-440) K/mm3 Lymph # 1.2 (1.2-5.4) K/mm3 [place] # 0.5 (0.0-0.8) K/mm3 Eos # 0.0 (0.0-0.4) K/mm3 Baso # 0.1 (0.0-0.1) K/mm3 Comprehensive Metabolic Panel 02/27/18 Range/Units 06:52 Sodium 137 (137-145) mmol/L Potassium 4.5 (3.6-5.0) mmol/L Chloride 103.2 (98-107) mmol/L Carbon Dioxide 23 (22-30) mmol/L BUN 16 (7-17) mg/dL Creatinine 0.5 L (0.7-1.2) mg/dL Glucose 105 H (65-100) mg/dL Calcium 9.4 (8.4-10.2) mg/dL AST 15 (5-40) units/L ALT < 5 L (7-56) units/L Alkaline Phosphatase 41 (35-129) units/L Total Protein 7.0 (6.3-8.2) g/dL Albumin 4.2 (3.9-5) g/dL
[2018-02-27] MEDS: CALAN SR PO SCH (10:37)
[2018-02-27] MEDS: BABY ASPIRIN PO SCH (10:37)
[2018-02-27] MEDS: PEPCID PO SCH ×2 (10:38→22:33)
[2018-02-27] MEDS: DELTASONE PO SCH ×2 (10:38→22:33)
[2018-02-27] MEDS: SODIUM CHLORIDE FLUSH SYRINGE 10 ML IV SCH ×2 (10:38→22:33)
[2018-02-27] MEDS ORDERED: LEXISCAN IV ONE (10:47)
--- NOTE | 2018-02-27 11:01 | Query- Syncope ---
Dear ___Swapna Date:__02/27/18 [employer] Machine Operator/CDS:____david Phone#:____[phone] Exercise your independent professional judgment when responding to query. Questions asked do not imply a particular answer is desired or expected. We greatly appreciate your clarification on this issue. Clinical Documentation States: 78-year-old woman who is a very poor historian, admitted with complaints of single episode of near syncope. She reports a sudden episode of headedness and weakness, unprovoked by taking any of her medications, not related to exertion, no shortness of breath, no palpitations and no chest pain. Assessment and plan: Presyncope : Carotid Doppler less than 50% stenosis Echo normal ejection fraction, cardiology following Hypertension : Well controlled continue antihypertensive medications. Check orthostatics COPD : well Compensated. Continue home medications. Hypothyroidism : Continue Synthroid. Hyperlipidemia : Continue Lipitor DVT prophylaxis. Lovenox daily. Clinical Findings Show: ECG in the hospital was a normal sinus rhythm, with a very brief sinus pause on the 10 second ECG tracing. On telemetry there has been no significant bradycardia or tachyarrhythmia. Echocardiogram shows left ventricular systolic function of the lower limits of normal ejection fraction 50-55%. Please specify the cause as: [x ] Autonomic Imbalance [ ] Dialysis disequilibrium syndrome [ ] Hypotension [ ] Shock [ ] Psychogenic [ ] Unable to Determine [ ] Other: Present on Admission: [x ] Yes (Y) [ ] Clinically undeterminable (W) [ ] No (N) Please also document response in your Progress Notes and/or Discharge Summary and indicate if the condition was present on admission. MTDD
[2018-02-27] MEDS: PERCOCET 5/325 PO PRN (16:16)
--- NOTE | 2018-02-28 | Treadmill Report ---
THALLIUM STRESS TEST LEFT VENTRICLE: Left ventricular chamber size is within normal spread. Perfusion study demonstrates homogeneous uptake of the tracer in all segments, no significant perfusion defects identified. Gated analysis demonstrates normal left ventricular systolic function, ejection fraction greater than 70%. CONCLUSION: Normal myocardial perfusion study. JOB# [id number] CA/NTS
[2018-02-28] MEDS: SYNTHROID PO SCH (05:55)
--- NOTE | 2018-02-28 09:04 | Progress Note ---
Assessment and Plan Near syncope Hypertension Echocardiogram shows left ventricular systolic function of the lower limits of normal ejection fraction 50-55%. Normal myocardial perfusion scan this presentation. Recommendations: Consider neurological causes of syncope. No further cardiac workup indicated. On discharge, patient will be recommended for an outpatient event monitor. Subjective Date of service: 02/28/18 Interval history: Patient is sitting up in bed. She has no complaints. No events on telemetry. Objective Vital Signs Temp Pulse Pulse Resp BP Pulse Ox 02/28/18 08:09 97.0 F L 68 15 127/64 97 02/28/18 01:58 98.4 F 65 20 136/79 98 02/27/18 22:00 96 H 86 20 96 02/27/18 19:48 97.3 F L 96 H 18 126/76 93 02/27/18 13:41 96.7 F L 74 18 135/55 98 02/27/18 11:15 93 H 151/84 02/27/18 11:14 100 H 134/74 02/27/18 11:13 102 H 111/72 02/27/18 11:12 109 H 145/72 02/27/18 11:11 113 H 139/69 02/27/18 11:10 87 142/75 02/27/18 11:05 59 L 144/69 - Physical Examination General: No Apparent Distress HEENT: Positive: PERRL Cardiac: Positive: Reg Rate and Rhythm Lungs: Positive: Decreased Breath Sounds Neuro: Positive: Grossly Intact Extremities: Absent: edema
[2018-02-28] MEDS: DELTASONE PO SCH (10:12)
[2018-02-28] MEDS: CALAN SR PO SCH (10:12)
[2018-02-28] MEDS: BABY ASPIRIN PO SCH (10:12)
[2018-02-28] MEDS: PEPCID PO SCH (10:12)
[2018-02-28] MEDS: SODIUM CHLORIDE FLUSH SYRINGE 10 ML IV SCH (10:13)
[2018-02-28] MEDS: PERCOCET 5/325 PO PRN (10:17)
--- NOTE | 2018-02-28 13:03 | Discharge Summary ---
Providers - Providers Date of Admission: 02/25/18 14:03 Date of discharge: 02/28/18 Attending physician: ABY ALEMAN 02/26/18 07:12 Consult to Physician [CONS] Routine Comment: called answ. serv./ dexter Consulting Provider: ELIDA SIMS Physician Instructions: Reason For Exam: Near syncope orthostatic Primary care physician: DRIVER ENGINEER Hospitalization Reason for admission: dizziness/near syncope episodes Condition: Stable Pertinent studies: CT head without contrast; no acute abnormality noted Chest x-ray; no acute abnormality Carotid Doppler; less than 50% stenosis Echocardiogram; EF 50-55% Stress test; negative for reversible ischemia and EF 70% Hospital course: 78-year-old female patient was admitted through emergency room with near syncope and dizziness spells for the last 1 week Patient was admitted to the hospital placed on fall precautions, Had extensive negative syncope workup Evaluated by cardiology, stress test was negative Patient's symptoms significantly improved, no new episodes of syncope noted Orthostats checked, Today patient is comfortable in no new complaints Vital signs stable, Ambulatory tolerating oral nutrition Physical examination at discharge is unremarkable Cardiology recommended outpatient event monitor placement upon discharge Advised to follow primary care physician and cardiology per schedule Patient is hemodynamically and clinically stable at discharge Discharge diagnosis; --Presyncope --Hypertension --COPD --Hypothyroidism --Hyperlipidemia Disposition: - TO HOME OR SELFCARE Time spent for discharge: 32 min Core Measure Documentation - Palliative Care Palliative Care/ Comfort Measures: Not Applicable - Core Measures Any of the following diagnoses?: none Exam - Constitutional Vitals: Temp Pulse Resp BP Pulse Ox 97.0 F L 68 15 127/64 97 02/28/18 08:09 02/28/18 10:00 02/28/18 08:09 02/28/18 08:09 02/28/18 08:09 General appearance: Present: no acute distress, well-nourished - EENT Eyes: Present: PERRL, EOM intact - Neck Neck: Present: supple, normal ROM - Respiratory Respiratory effort: normal Respiratory: negative: rales, rhonchi, wheezing - Cardiovascular Rhythm: regular Heart Sounds: Present: S1 & S2 - Extremities Extremities: no ischemia, No edema - Abdominal General gastrointestinal: Present: soft, non-tender, non-distended, normal bowel sounds - Integumentary Integumentary: Present: clear, warm - Musculoskeletal Musculoskeletal: strength equal bilaterally - Psychiatric Psychiatric: appropriate mood/affect, cooperative - Neurologic Neurologic: CNII-XII intact, moves all extremities Plan Activity: advance as tolerated, fall precautions Diet: other (cardiac diet) Additional Instructions: f/u cardiology for event monitor placement. Fall precautions Follow up with: PRIMARY CAREMD [Primary Care Provider] - 3-5 Days COLLEEN THOMAS MD [Staff Physician] - 7 Days
[2018-02-28 15:08] VITALS: BP 137/68
== END 2018-02-28 14:00 | disposition home health service (06) | DRG 74 ==
LOC: ED 10:07 → 2B-ACE 14:03
PROVIDERS: ADMIT Internal Medicine; ATTEND Internal Medicine
DX: G90.8 Other disorders of autonomic nervous system (principal); J44.9 Chronic obstructive pulmonary disease, unspecified; I11.0 Hypertensive heart disease with heart failure; I50.9 Heart failure, unspecified; M19.90 Unspecified osteoarthritis, unspecified site; I95.1 Orthostatic hypotension; E03.9 Hypothyroidism, unspecified; E78.5 Hyperlipidemia, unspecified; E86.0 Dehydration; Z88.2 Allergy status to sulfonamides; Z90.710 Acquired absence of both cervix and uterus; I25.2 Old myocardial infarction; Z90.49 Acquired absence of other specified parts of digestive tract; Z82.49 Family history of ischemic heart disease and other diseases of the circulatory system
CPT/HCPCS: 36415; 70450; 71045; 78452; 80053; 81001; 82140; 82550; 82553; 82962; 83036; 83690; 83880; 84484; 85025; 85610; 93005; 93010; 93017; 93306; 93880; A9270-GY; A9502; J2270; J2785; J7030; J7512